=== PATIENT | female | born 1960 | race African-American/Black ===

== ENCOUNTER 2017-02-24 16:10 | Emergency (ER) | payer BC ==
[~2017-02-24] VITALS: Ht 160 cm; Wt 77.1 kg
[2017-02-24 16:38] VITALS: BP 163/87
[2017-02-24] MEDS ORDERED: ACET-704 PO (16:46)
[2017-02-24] MEDS ORDERED: AMOX500C PO (16:46)
--- NOTE | 2017-02-24 16:46 | PHYS DOC ---
Past Medical History Past Medical History: Hypertension Past Surgical History: No Surgical History Alcohol Use: None Drug Use: None Adult General Chief Complaint Chief Complaint: DENTAL PROBLEM HPI HPI Patient is a 57 year old female presents to the emergency department stating that she is supposed to have her wisdom teeth pulled. She states that she has having pain in her left lower back tooth. She denies any fever, chills or any nausea vomiting. She states she sick Tylenol for the pain and discomfort with minimal relief. Patient has driven herself here to the emergency department she' s been offered ibuprofen at that time. Review of Systems Review of Systems Constitutional: Denies fever or chills [] Eyes: Denies change in visual acuity, redness, or eye pain [] HENT: Denies nasal congestion or sore throat. Dental pain Respiratory: Denies cough or shortness of breath [] Cardiovascular: No additional information not addressed in HPI [] GI: Denies abdominal pain, nausea, vomiting, bloody stools or diarrhea [] : Denies dysuria or hematuria [] Musculoskeletal: Denies back pain or joint pain [] Integument: Denies rash or skin lesions [] Neurologic: Denies headache, focal weakness or sensory changes [] Endocrine: Denies polyuria or polydipsia [] Allergies Allergies Allergies Coded Allergies Type Severity Reaction Last Updated Verified Penicillins Allergy Intermediate 12/19/14 No Physical Exam Physical Exam Constitutional: Well developed, well nourished, no acute distress, non-toxic appearance. [] HENT: Normocephalic, atraumatic, bilateral external ears normal, oropharynx moist, no oral exudates, nose normal. Bilateral tympanic membranes appear to be normal. Throat with no erythematous no exudate noted. Patient with sores: The # 17 tooth on the outer part. Eyes: PERRLA, EOMI, conjunctiva normal, no discharge. [] Neck: Normal range of motion, no tenderness, supple, no stridor. [] Cardiovascular:Heart rate regular rhythm, no murmur [] Lungs & Thorax: Bilateral breath sounds clear to auscultation [] Skin: Warm, dry, no erythema, no rash. [] Extremities: No tenderness, no cyanosis, no clubbing, ROM intact, no edema. [] Neurologic: Alert and oriented X 3, normal motor function, normal sensory function, no focal deficits noted. [] Psychologic: Affect normal, judgement normal, mood normal. [] EKG EKG [] Radiology/Procedures Radiology/Procedures [] Course & Med Decision Making Course & Med Decision Making Pertinent Labs and Imaging studies reviewed. (See chart for details) Patient will be discharged home on amoxicillin. She was recommended to use ibuprofen 800 mg every 8 hours with food stop taking few develop upset stomach. Was recommended warm salt water mouth rinses. Patient was also provided with a prescription for Tylenol No. 3 for severe pain and discomfort. She was instructed this medication will cause drowsiness do not take any be alert and oriented. Patient agrees with discharge instructions, treatment regimens and follow-up recommendations which she will follow up with a dentist next week. All questions and concerns been answered at patient's bedside. [] Dragon Disclaimer Dragon Disclaimer This electronic medical record was generated, in whole or in part, using a voice recognition dictation system. Departure Departure Impression: Primary Impression: Dental abscess Disposition: HOME, SELF-CARE Condition: STABLE Referrals: NO PCP (PCP) Patient Instructions: Dental Abscess Additional Instructions: Activity as tolerated. Medications as prescribed. Tylenol No. 3 cause drowsiness do not take any be alert and oriented. Ibuprofen 800 mg every 8 hours. Follow-up with your dentist within the next week. Warm salt water mouth rinses 4 times a day. Return back to emergency prior signs symptoms of become worse. Scripts Acetaminophen With Codeine (TYLENOL WITH CODEINE #3 TABLET) 1 Each Tablet 1 TAB PO PRN Q6HRS Y for PAIN, #15 TAB Prov: DELROY LOCKHART BINDER TECHNICIAN 02/24/17 Amoxicillin (AMOXICILLIN) 500 Mg Capsule 1 CAP PO QID, #40 CAP Prov: DELROY LOCKHART BINDER TECHNICIAN 02/24/17 DELROY LOCKHART BINDER TECHNICIAN Feb 24, 2017 16:46
[2017-02-24] MEDS ORDERED: IBUPROFEN 800 MG TABLET. PO ONE (17:00)
== END 2017-02-24 17:02 | disposition home or self-care (01) ==
LOC: ER 16:10
DX: K04.7 Periapical abscess without sinus (principal); I10 Essential (primary) hypertension; Z88.0 Allergy status to penicillin
CPT/HCPCS: 99283

== ENCOUNTER 2020-04-23 09:25 | Emergency (ER) | payer BC ==
[~2020-04-23] VITALS: Ht 160 cm; Wt 72.0 kg
[~2020-04-23 09:25] MED LIST: ACET-704 PO; AMOX500C PO
--- NOTE | 2020-04-23 10:24 | RAD ---
AP chest. HISTORY: Chest pain AP view was taken of the chest. Lungs are free of infiltrates. Heart is normal in size. There is no effusion. IMPRESSION: 1. No acute chest disease. Electronically signed by: Aubrey Álvarez MD (04/23/2020 10:20 AM) [id number]
[2020-04-23 11:12] VITALS: BP 148/81
[2020-04-23] MEDS ORDERED: PRED50TA PO (11:20)
[2020-04-23] MEDS ORDERED: BENZ100C PO (11:20)
--- NOTE | 2020-04-23 11:21 | ED.ADGEN ---
Past Medical History Past Medical History: High Cholesterol, Hypertension Past Surgical History: No Surgical History Smoking Status: Never Smoker Alcohol Use: Occasionally Drug Use: None General Adult EDM: Chief Complaint: Congestion HPI: HPI: Patient is a 60-year-old female who presents to the emergency room complaining of congestion and cough that started 3 days ago. Patient has had coronavirus exposure. She has not had any known fevers. She does not have any URI symptoms. She feels like there is something in her chest but she is not bringing anything up when she coughs. She has not taken any medications at home. She denies any fevers, chills, sweats, headache, sore throat, abdominal pain, nausea, diarrhea, loss of smell, loss of taste. Review of Systems: Review of Systems: Complete ROS is negative unless otherwise documented in HPI Allergies: Allergies: Allergies Coded Allergies Type Severity Reaction Last Updated Verified No Known Drug Allergies 02/24/17 No Physical Exam: PE: General: Awake, alert, NAD. Well Nourished, well hydrated. Cooperative HEENT: Atraumatic, EOMI, PERRL, airway patent, moist oral mucosa Neck: Supple, trachea midline Respiratory: CTA bilaterally, normal effort, no wheezing/crackles CV: RRR, no murmur, cap refill <2 GI: Soft, nondistended, nontender, no masses MSK: No obvious deformities Skin: Warm, dry, intact Neuro: A&O x3, speech NL, sensory and motor grossly intact, no focal deficits Psych: Normal affect, normal mood, not suicidal or homicidal Current Patient Data: Vital Signs: Vital Signs Date Time Temp Pulse Resp B/P (MAP) Pulse Ox O2 Delivery O2 Flow Rate FiO2 04/23/20 11:12 59 148/81 (103) 100 Room Air 04/23/20 09:44 98.8 16 98.8 EKG: EKG: [] Heart Score: Risk Factors: Risk Factors: DM, Current or recent (<one month) smoker, HTN, HLP, family history of CAD, obesity. Risk Scores: Score 0 - 3: 2.5% MACE over next 6 weeks - Discharge Home Score 4 - 6: 20.3% MACE over next 6 weeks - Admit for Clinical Observation Score 7 - 10: 72.7% MACE over next 6 weeks - Early Invasive Strategies Radiology/Procedures: Radiology/Procedures: [] Course & Med Decision Making: Course & Med Decision Making Pertinent Labs and Imaging studies reviewed. (See chart for details) Patient is a 60-year-old female who presents to the emergency room with cough and chest congestion. At this time there is concern for the novel coronavirus 19. Due to concern of COVID-19 I have discussed the importance of quarantining with the patient. I have discussed with them that they should avoid grocery stores, gas stations, pharmacies, work, friends/family's homes. I discussed with him that it is important that they do not expose themselves to anyone else for the next 14 days. Chest x-ray does not show infiltrates at this time and patient will not be treated with empiric antibiotics. I have discussed with the patient the course of the illness and we have discussed strict return precautions. At this time patient does not need admission as they are stable, however it is possible that they may get worse over the next few days and we have discussed the importance of coming back if they develop severe shortness of breath or any other symptoms that they are concerned about. Patient's test results and vitals while in the ED were fully reviewed and discussed with the patient. Patient is stable and at this time does not need admission to the hospital. We have discussed strict return precautions and the importance of following up with their Primary Care Physician. Patient stated understanding and was given an opportunity to ask any questions. Hiren Disclaimer: Hiren Disclaimer: This electronic medical record was generated, in whole or in part, using a voice recognition dictation system. Departure Departure Impression: Primary Impression: Bronchitis Additional Impression: Person under investigation for COVID-19 Disposition: 01 DC HOME SELF CARE/HOMELESS Condition: STABLE Referrals: UNKNOWN PCP NAME (PCP) Patient Instructions: Acute Bronchitis Scripts Benzonatate (TESSALON PERLE) 100 Mg Capsule 1 CAP PO TID for cough, #21 CAP Prov: KAMLESH ESQUIVEL MD 04/23/20 Prednisone (PREDNISONE) 50 Mg Tablet 1 TAB PO DAILY, #5 TAB Prov: KAMLESH ESQUIVEL MD 04/23/20 Problem Qualifiers KAMLESH ESQUIVEL MD Apr 23, 2020 11:21
--- NOTE | 2020-04-25 13:35 | NUR ---
IP Informed pt of negative COVID results. Pt verbalized understanding.
== END 2020-04-23 11:30 | disposition home or self-care (01) ==
LOC: ER 09:25
DX: J40 Bronchitis, not specified as acute or chronic (principal); Z20.828 Contact with and (suspected) exposure to other viral communicable diseases; E78.00 Pure hypercholesterolemia, unspecified; I10 Essential (primary) hypertension
CPT/HCPCS: 71045; 99284; C9803; U0003

== ENCOUNTER 2020-12-24 23:58 | Emergency (ER) | payer BC ==
[~2020-12-24] VITALS: Ht 160 cm; Wt 70.9 kg
[~2020-12-24 23:58] MED LIST changes: +BENZ100C PO; +PRED50TA PO
--- NOTE | 2020-12-25 02:58 | PHYS DOC ---
Past Medical History Past Medical History: High Cholesterol, Hypertension Past Surgical History: No Surgical History Smoking Status: Never Smoker Alcohol Use: Occasionally Drug Use: None General Adult EDM: Chief Complaint: SHORTNESS OF BREATH HPI: HPI: Patient is a 60 year old female with past medical history of HTN, HLD who presents with sensation of shortness of breath since 7 PM last night. Rapidly progressed. Feels like her chest is "congested". Denies any chest pain. No fevers or chills. No sick contacts. Has been vaccinated for Covid. Has not had a cough. Has not had any sputum production. No lower extremity swelling or pain. No recent surgeries or immobilizations. No history of CHF or COPD. Not a smoker. Review of Systems: Review of Systems: Constitutional: Denies fever or chills. [] Eyes: Denies change in visual acuity. [] HENT: Denies nasal congestion or sore throat. [] Respiratory: + Chest congestion and shortness of breath. [] Cardiovascular: Denies chest pain or edema. [] GI: Denies abdominal pain, nausea, vomiting, bloody stools or diarrhea. [] : Denies dysuria. [] Musculoskeletal: Denies back pain or joint pain. [] Integument: Denies rash. [] Neurologic: Denies headache, focal weakness or sensory changes. [] Endocrine: Denies polyuria or polydipsia. [] Lymphatic: Denies swollen glands. [] Psychiatric: Denies depression or anxiety. [] Heart Score: C/O Chest Pain: No Risk Factors: Risk Factors: DM, Current or recent (<one month) smoker, HTN, HLP, family history of CAD, obesity. Risk Scores: Score 0 - 3: 2.5% MACE over next 6 weeks - Discharge Home Score 4 - 6: 20.3% MACE over next 6 weeks - Admit for Clinical Observation Score 7 - 10: 72.7% MACE over next 6 weeks - Early Invasive Strategies Family History: Family History: No pertinent family history Allergies: Allergies: Allergies Coded Allergies Type Severity Reaction Last Updated Verified No Known Drug Allergies 02/24/17 No Physical Exam: PE: Constitutional: Well-appearing. Well developed, well nourished, no acute distress, non-toxic appearance. [] HENT: Normocephalic, atraumatic, bilateral external ears normal, oropharynx moist, no oral exudates, nose normal. [] Eyes: PERRLA, EOMI, conjunctiva normal, no discharge. [] Neck: Normal range of motion, no tenderness, supple, no stridor. [] Cardiovascular:Heart rate regular rhythm, no murmur [] Lungs & Thorax: Lungs are clear. Bilateral breath sounds clear to auscultation [] Abdomen: Bowel sounds normal, soft, no tenderness, no masses, no pulsatile masses. [] Skin: Warm, dry, no erythema, no rash. [] Back: No tenderness, no CVA tenderness. [] Extremities: No tenderness, no cyanosis, no clubbing, ROM intact, no edema. [] Neurologic: Alert and oriented X 3, normal motor function, normal sensory function, no focal deficits noted. [] Psychologic: Affect normal, judgement normal, mood normal. [] Current Patient Data: Vital Signs: Vital Signs Date Time Temp Pulse Resp B/P (MAP) Pulse Ox O2 Delivery O2 Flow Rate FiO2 12/25/20 02:00 98.7 73 20 188/86 (103) Room Air 98.7 EKG: EKG: Sinus rhythm. Rate 69. Normal intervals. Normal axis. No Q waves, T wave inversion, or ST elevation or depression. No acute ischemic changes [] Radiology/Procedures: Radiology/Procedures: CXR [] Impression: [facility] [address] [place] [address] IMAGING REPORT Signed PATIENT: MARCO A WELLS ACCOUNT: [id number] : 1960 LOCATION: ER AGE: 60 SEX: F EXAM STATUS: PRE ER ORD. PHYSICIAN: LOUIS DAO MD REASON: shortness of breath PROCEDURE: CHEST AP ONLY EXAMINATION: Chest radiograph. VIEWS: Single view COMPARISON: 04/23/2020 INDICATION:60 years, Female, shortness of breath. FINDINGS: Normal cardiomediastinal silhouette. No focal consolidation. No pleural effusion or pneumothorax. No acute osseous process. IMPRESSION: No acute cardiopulmonary process. Electronically signed by: Porsche Dominguez MD (12/25/2020 3:34 AM) [facility] DICTATED and SIGNED BY: PORSCHE DOMINGUEZ MD DATE: 12/25/20 [id number] Course & Med Decision Making: Course & Med Decision Making Pertinent Labs and Imaging studies reviewed. (See chart for details) Patient is 60-year-old female with history of HTN, HLD who presents with a sensation of chest congestion and shortness of breath since 7 PM last evening. On arrival is afebrile, hemodynamically stable. Well-appearing and satting well on room air. Not in any respiratory distress. The lungs are clear. She has no chest pain to suggest ACS or pulmonary embolism. I will check an EKG and a single troponin which would be sensitive to rule out ACS. We will check a chest x-ray for any evidence of pneumonia or spontaneous pneumothorax, although I find these to be less likely given her symptom complex. No evidence of volume overload on exam to suggest CHF. No wheezes to suggest COPD. Will check labs to ensure no anemia. 0257 Chest x-ray is clear. No evidence of pneumonia or pulmonary edema. CBC is normal aside from a mild anemia 10.6, which I do not feel is the cause for her symptoms. CMP reassuring overall. Creatinine 1.2, but no previous for comparison. Troponin is negative, given duration of symptoms is sufficient to rule out ACS. The etiology of her sensation of shortness of breath is unclear at this time, but she is vitally stable and appears well. Feel that she can be safely discharged at this time. [id number] Hiren Disclaimer: Hiren Disclaimer: This electronic medical record was generated, in whole or in part, using a voice recognition dictation system. Departure Departure Disposition: HOME / SELF CARE / HOMELESS Condition: STABLE Referrals: UNKNOWN PCP NAME (PCP) Since you do not have a PCP, please call the number for the [facility] at [phone]. Additional Instructions: Your work-up was very reassuring today. Your chest x-ray did not show any evidence of a pneumonia. Your labs were also reassuring. There was a small amount of anemia (low red blood cells), but this is not the cause of your symptoms today. Your rapid Covid test was negative. We did not find a reason for your shortness of breath at this time. If your symptoms worsen, you develop high fevers, chest pain, or other new/concerning symptoms please return to the emergency department for reevaluation. Otherwise please follow-up with your primary care doctor. LOUIS DAO MD Dec 25, 2020 02:58
--- NOTE | 2020-12-25 03:37 | RAD ---
EXAMINATION: Chest radiograph. VIEWS: Single view COMPARISON: 04/23/2020 INDICATION:60 years, Female, shortness of breath. FINDINGS: Normal cardiomediastinal silhouette. No focal consolidation. No pleural effusion or pneumothorax. No acute osseous process. IMPRESSION: No acute cardiopulmonary process. Electronically signed by: Micah Dominguez MD (12/25/2020 3:34 AM) [facility]
--- NOTE | 2020-12-25 04:06 | EKG ---
[facility] [address] [place] [address] Test Date: 2020-12-25 Test Time: 03:01:25 Pat Name: MARCO A WELLS Department: Room: Gender: F Elementary Assistant Principal: : 1960 Requested By: LOUIS DAO Order Number: [id number] Reading MD: Measurements Intervals [place] Rate: 69 P: 63 AK: 178 QRS: 34 QRSD: 74 T: 29 QT: 394 QTc: 424 Interpretive Statements SINUS RHYTHM NORMAL ECG RI6.02 No previous ECG available for comparison
[2020-12-25 04:16] LABS: BASO % 0 % (0-3); EOS # 0.1 x10^3/uL (0.0-0.7); EOS % 1 % (0-3); HEMATOCRIT 33.6 % (36.0-47.0); HEMOGLOBIN 10.6 g/dL (12.0-15.5); LYMPH # 1.6 x10^3/uL (1.0-4.8); LYMPH % 22 % (24-48); MEAN CORPUSCULAR HEMOGLOBIN 27 pg (25-35); MEAN CORPUSCULAR HGB CONC 32 g/dL (31-37); MEAN CORPUSCULAR VOLUME 85 fL (79-100); MONO # 0.4 x10^3/uL (0.0-1.1); MONO % 6 % (0-9); NEUT % 70 % (31-73); PLATELET COUNT 307 x10^3/uL (140-400); RED BLOOD COUNT 3.98 x10^6/uL (3.50-5.40); RED CELL DISTRIBUTION WIDTH 13.7 % (11.5-14.5); WHITE BLOOD COUNT 7.1 x10^3/uL (4.0-11.0)
[2020-12-25 04:30] LABS: CALCIUM 9.3 mg/dL (8.5-10.1); CREATININE 1.2 mg/dL (0.6-1.0); GFR 55.3; POTASSIUM 3.7 mmol/L (3.5-5.1)
[2020-12-25 04:36] LABS: ALBUMIN 3.6 g/dL (3.4-5.0); ALBUMIN/GLOBULIN RATIO 0.9 (1.0-1.7); TOTAL BILIRUBIN 0.2 mg/dL (0.2-1.0); TOTAL PROTEIN 7.7 g/dL (6.4-8.2)
[2020-12-25 05:20] VITALS: BP 129/71
--- NOTE | 2020-12-27 12:43 | NUR ---
IP: Informed pt of negative covid test. Pt verbalized understanding
== END 2020-12-25 05:26 | disposition home or self-care (01) ==
LOC: ER 23:58
DX: R06.02 Shortness of breath (principal); Z20.822 Contact with and (suspected) exposure to COVID-19; R09.89 Other specified symptoms and signs involving the circulatory and respiratory systems; D64.9 Anemia, unspecified; E78.00 Pure hypercholesterolemia, unspecified; I10 Essential (primary) hypertension
CPT/HCPCS: 36415; 71045; 80053; 84484; 85025; 87426; 93005; 99285; U0003; U0005